=== PATIENT | male | born 1960 | race Two or more races ===

== ENCOUNTER 2022-08-13 05:30 | Day surgery (SDC) | payer OTHER ==
[~2022-08-13 05:30] MED LIST: CRESTOR20 MG PO; ECOTRIN81 MG PO; IRBESARTAN-HCT1 EAC1 PO; TIROSINT25 MCG PO; ZETIA10 MG PO
[2022-08-13] MEDS ORDERED: PERCOCET 5-3251 EACH PO (09:07)
== END 2022-08-13 11:20 | disposition home or self-care (01) ==
LOC: CIR.AMB 05:30
PROVIDERS: ATTEND Surgery
DX: D34 Benign neoplasm of thyroid gland (principal); E06.5 Other chronic thyroiditis; Z20.822 Contact with and (suspected) exposure to COVID-19; I10 Essential (primary) hypertension; Z86.16 Personal history of COVID-19; Z87.891 Personal history of nicotine dependence; Z79.82 Long term (current) use of aspirin